=== PATIENT | male | born 1970 | race Caucasian/White ===

== ENCOUNTER 2016-11-17 02:13 | Emergency (ER) | payer SELFPAY ==
[~2016-11-17] VITALS: Ht 172.7 cm; Wt 82.0 kg
[2016-11-17 02:16] VITALS: Ht 172.7 cm; Wt 82.0 kg
[2016-11-17] MEDS ORDERED: KETOROLAC 30 MG INJ IV STA (02:37)
[2016-11-17] MEDS ORDERED: ONDANSETRON 4 MG INJ IV STA (02:37)
[2016-11-17 02:57] LABS: BASOPHILS % 0.2 % (0.0-2.0); EOSINOPHILS % 0.3 % (0.0-7.0); HEMATOCRIT 44.2 % (42.0-52.0); HEMOGLOBIN 14.2 g/dl (14.0-18.0); LYMPHOCYTES # 2.6 10^3/ul (0.8-2.9); LYMPHOCYTES % 19.2 % (15.0-51.0); MEAN CORPUSCULAR HEMOGLOBIN 26.6 pg (29.0-33.0); MEAN CORPUSCULAR HGB CONC 32.1 g/dl (32.0-37.0); MEAN CORPUSCULAR VOLUME 82.8 fl (82.0-101.0); MEAN PLATELET VOLUME 10.5 fl (7.4-10.4); MONOCYTE # 0.5 10^3/ul (0.3-0.9); MONOCYTES % 3.3 % (0.0-11.0); NEUTROPHIL # 10.4 10^3/ul (1.6-7.5); NEUTROPHILS % 76.6 % (39.0-77.0); PLATELET COUNT 381 10^3/UL (140-415); RED BLOOD COUNT 5.34 10^6/ul (4.70-6.10); RED CELL DISTRIBUTION WIDTH 12.2 % (11.5-14.5); WHITE BLOOD COUNT 13.6 10^3/ul (4.8-10.8)
[2016-11-17 03:07] LABS: ADD UMIC NO; UR ASCORBIC ACID NEGATIVE (NEGATIVE); UR BILIRUBIN (Dip) NEGATIVE (NEGATIVE); UR BLOOD (Dip) NEGATIVE (NEGATIVE); UR CLARITY CLEAR (CLEAR); UR COLOR YELLOW (YELLOW); UR GLUCOSE (Dip) 1+ mg/dL (NEGATIVE); UR KETONES (Dip) 1+ mg/dL (NEGATIVE); UR LEUKOCYTE ESTERASE (Dip) NEGATIVE Leu/ul (NEGATIVE); UR NITRITE (Dip) NEGATIVE (NEGATIVE); UR TOTAL PROTEIN (Dip) NEGATIVE (NEGATIVE); UR UROBILINOGEN (Dip) NEGATIVE (NEGATIVE)
[2016-11-17 03:13] LABS: ALBUMIN 4.9 g/dl (3.3-4.9); ALBUMIN/GLOBULIN RATIO 1.32; BILIRUBIN,INDIRECT 0.3 mg/dl (0-1.1); BILIRUBIN,TOTAL 0.3 mg/dl (0.2-1.3); CALCIUM 9.5 mg/dl (8.4-10.2); CREATININE 0.89 mg/dl (0.61-1.24); TOTAL PROTEIN 8.6 g/dl (6.1-8.1)
[2016-11-17] MEDS ORDERED: IBUP800T25 PO (03:21)
--- NOTE | 2016-11-17 03:36 | RADRPT ---
PROCEDURE: ULTRASOUND LIMITED ABDOMEN CLINICAL INDICATION: 46-year-old male with abdominal pain. TECHNIQUE: Multiple sonographic of the right upper quadrant of the abdomen were obtained. The imag es were reviewed on a PACS workstation. COMPARISON: None. FINDINGS: The pancreas is not well visualized secondary to overlying bowel gas. The liver displays normal echogenicity. The liver measures 16.3 cm in length. No evidence of intrah epatic biliary ductal dilatation is seen. The portal and hepatic veins are unremarkable. The gallbladder contains multiple shadowing stones. The gallbladder wall is mildly prominent measur ing 3.9 mm. No pericholecystic fluid is seen. The common bile duct measures 3.5 mm and is not dilate d. The right kidney displays normal echogenicity. The right kidney measures 12.4 cm in maximal length. No caliectasis or hydronephrosis is seen. No free fluid is seen. IMPRESSION: Cholelithiasis with mildly prominent gallbladder wall. .Caleb Whittaker MD, MD Date Time Electronically viewed and signed by .Caleb Whittaker MD, on 11/17/2016 03:36 .M/
--- NOTE | 2016-11-17 03:36 | ERD ---
ER Documentation Chief Complaint Date/Time DATE: 11/17/16 TIME: 03:23 Chief Complaint upper abd pain x 2 days HPI 46-year-old male complaining of abdominal pain 2 days. Patient stated that his abdominal pain first occurred 2 days ago after eating [place] food. He had vomited once in the time. The pain resolved, and return again today. He ate cheese and chicken for dinner tonight, an hour later the abdominal pain returned. Patient described pain as intense but dull, constant. Patient reports history of acid reflux, but no heartburn. Denies fever or chills. He currently has nausea, but no vomiting. Denies diarrhea or constipation. ROS All systems reviewed and are negative except as per history of present illness. Medications Home Meds Active Scripts Ondansetron (Ondansetron Odt) 4 Mg Tab.rapdis, 4 MG PO Q6H Y for NAUSEA AND/OR VOMITING, #10 TAB Prov:EWA NEVAREZ. FISH ICER 11/17/16 Tramadol HCl (Tramadol HCl) 50 Mg Tablet, 50 MG PO Q4 Y for PAIN, #20 TAB Prov:EWA NEVAREZ. FISH ICER 11/17/16 Discontinued Scripts Ibuprofen* (Motrin*) 800 Mg Tab, 800 MG PO Q6H Y for PAIN AND OR ELEVATED TEMP, #30 TAB Prov:EWA NEVAREZ. FISH ICER 11/17/16 Allergies Allergies: Coded Allergies: No Known Allergy (Unverified , 11/17/16) PMhx/Soc Medical and Surgical Hx: pt denies Medical Hx, pt denies Surgical Hx Hx Alcohol Use: No Hx Substance Use: No Hx Tobacco Use: No Smoking Status: Never smoker Physical Exam Vitals Vital Signs Date Time Temp Pulse Resp B/P Pulse Ox O2 Delivery O2 Flow Rate FiO2 11/17/16 02:16 98.3 73 20 176/90 99 Physical Exam General: Well-developed, well-nourished, conscious and coherent, in no distress Skin: Warm and dry without rash, good texture and turgor Head: Normocephalic without evidence of trauma Eyes: Sclera and conjunctivae normal; pupils equal, round, and reactive to light; extraocular movements are intact Chest: Normal AP diameter. Good expansion without retractions. Nontender. Lungs are clear to auscultate bilaterally with good tidal volume Heart: Regular rate and rhythm. No murmur, rub, or gallops heard Abdomen: Soft, right upper quadrant tenderness without masses, guarding, or rebound. Bowel sounds are active. No hepatosplenomegaly Extremities: Full range of motion. Good strength bilaterally. No clubbing, cyanosis, or edema. Peripheral pulses are intact. Sensation intact Neuro: Alert and oriented 4, GCS 15. Cranial nerves grossly intact. Motor and sensory exams nonfocal. Moves all extremities. Speech clear. Gait normal Result Diagram: 11/17/16 02511/17/16 025 Results 24 hrs Laboratory Tests Test 11/17/16 02:45 11/17/16 02:50 Urine Color YELLOW Urine Clarity CLEAR Urine pH 6.0 Urine Specific Card[place] 1.020 Urine Ketones 1+mg/dL Urine Nitrite NEGATIVEmg/dL Urine Bilirubin NEGATIVEmg/dL Urine Urobilinogen NEGATIVEmg/dL Urine Leukocyte Esterase NEGATIVELeu/ul Urine Hemoglobin NEGATIVEmg/dL Urine Glucose 1+mg/dL Urine Total Protein NEGATIVEmg/dl White Blood Count 13.610^3/ul Red Blood Count 5.3410^6/ul Hemoglobin 14.2g/dl Hematocrit 44.2% Mean Corpuscular Volume 82.8fl Mean Corpuscular Hemoglobin 26.6pg Mean Corpuscular Hemoglobin Concent 32.1g/dl Red Cell Distribution Width 12.2% Platelet Count 02099^3/UL Mean Platelet Volume 10.5fl Neutrophils % 76.6% Lymphocytes % 19.2% Monocytes % 3.3% Eosinophils % 0.3% Basophils % 0.2% Nucleated Red Blood Cells % 0.0/100WBC Neutrophils # 10.410^3/ul Lymphocytes # 2.610^3/ul Monocytes # 0.510^3/ul Eosinophils # 0.010^3/ul Basophils # 0.010^3/ul Nucleated Red Blood Cells # 0.010^3/ul Sodium Level 148mmol/L Potassium Level 4.0mmol/L Chloride Level 102mmol/L Carbon Dioxide Level 27mmol/L Anion Gap 23 Blood Urea Nitrogen 22mg/dl Creatinine 0.89mg/dl Glucose Level 162mg/dl Calcium Level 9.5mg/dl Total Bilirubin 0.3mg/dl Direct Bilirubin 0.00mg/dl Indirect Bilirubin 0.3mg/dl Aspartate Amino Transf (AST/SGOT) 25IU/L Alanine Aminotransferase (ALT/SGPT) 40IU/L Alkaline Phosphatase 97IU/L Total Protein 8.6g/dl Albumin 4.9g/dl Globulin 3.70g/dl Albumin/Globulin Ratio 1.32 Lipase 46U/L Current Medications Medications (Trade) Dose Ordered Sig/Karen Route PRN Reason Start Time Stop Time Status Last Admin Dose Admin Ketorolac Tromethamine (Toradol) 30 mg ONCE STAT IV 11/17/16 02:37 11/17/16 02:38 DC 11/17/16 02:57 Ondansetron HCl (Zofran Inj) 4 mg ONCE STAT IV 11/17/16 02:37 11/17/16 02:38 DC 11/17/16 02:56 PROCEDURE: ULTRASOUND LIMITED ABDOMEN CLINICAL INDICATION: 46-year-old male with abdominal pain. TECHNIQUE: Multiple sonographic of the right upper quadrant of the abdomen were obtained. The images were reviewed on a PACS workstation. COMPARISON: None. FINDINGS: The pancreas is not well visualized secondary to overlying bowel gas. The liver displays normal echogenicity. The liver measures 16.3 cm in length. No evidence of intrahepatic biliary ductal dilatation is seen. The portal and hepatic veins are unremarkable. The gallbladder contains multiple shadowing stones. The gallbladder wall is mildly prominent measuring 3.9 mm. No pericholecystic fluid is seen. The common bile duct measures 3.5 mm and is not dilated. The right kidney displays normal echogenicity. The right kidney measures 12.4 cm in maximal length. No caliectasis or hydronephrosis is seen. No free fluid is seen. IMPRESSION: Cholelithiasis with mildly prominent gallbladder wall. .Caleb Whittaker MD, MD Date Time Electronically viewed and signed by .Caleb Whittaker MD, MD on 11/17/2016 03:36 .M/ CC: EWA NEVAREZ FISH ICER Procedures/MDM Well-appearing 46-year-old male without any prior medical history presents the ED with right upper quadrant abdominal pain 2 days. Ultrasound showed cholelithiasis with mildly prominent gallbladder wall, without common bile duct dilation. Mild leukocytosis of 13.6 is seen on CBC. CMP is generally unremarkable, glucose 162, sodium 148. Lipase negative. 1+ ketones and 1+ glucose is noted UA, UA are otherwise unremarkable. Toradol 30 mg IV and Zofran 4 mg IV given to the patient in the ED. Patient reports improvement in symptoms after the medications. Patient appears well, stable for discharge and outpatient management. Medical decision making shared with patient and family. Education provided to patient and family. Patient and family expressed understanding of the plan. Medications on discharge: Tramadol, Zofran. Follow-up: Primary care provider in 2-3 days or return to ED if worse. The case was reviewed and discussed with Dr. Vences, who agrees with the plan of care including labs, treatment, and advanced imaging as appropriate. Disclaimer: Inadvertent spelling and grammatical errors are likely due to EHR/ dictation software use and do not reflect on the overall quality of patient care. Also, please note that the electronic time recorded on this note does not necessarily reflect the actual time of the patient encounter. Departure Diagnosis: Primary Impression: Gallstone Cholecystitis presence: without cholecystitis Biliary obstruction: without biliary obstruction Qualified Code: K80.20 - Calculus of gallbladder without cholecystitis without obstruction Condition: Stable Patient Instructions: Gallstones Referrals: [facility] YOU HAVE RECEIVED A MEDICAL SCREENING EXAM AND THE RESULTS INDICATE THAT YOU DO NOT HAVE A CONDITION THAT REQUIRES URGENT TREATMENT IN THE EMERGENCY DEPARTMENT. FURTHER EVALUATION AND TREATMENT OF YOUR CONDITION CAN WAIT UNTIL YOU ARE SEEN IN YOUR DOCTORS OFFICE WITHIN THE NEXT 1-2 DAYS. IT IS YOUR RESPONSIBILITY TO MAKE AN APPOINTMENT FOR FOLOW-UP CARE. IF YOU HAVE A PRIMARY DOCTOR --you should call your primary doctor and schedule an appointment IF YOU DO NOT HAVE A PRIMARY DOCTOR YOU CAN CALL OUR PHYSICIAN REFERRAL HOTLINE AT IF YOU CAN NOT AFFORD TO SEE A PHYSICIAN YOU CAN CHOSE FROM THE FOLLOWING [facility] [address] [facility] [address] [facility] [address] [facility] [address] [facility]. [facility] [address] [facility]. [facility] [address] Additional Instructions: Call your primary care doctor TOMORROW for an appointment during the next 2-3 days.See the doctor sooner or return here if your condition worsens before your appointment time. EWA NEVAREZ. KAJAL Nov 17, 2016 03:36
[2016-11-17] MEDS ORDERED: ONDA4TAB14 PO (03:37)
[2016-11-17] MEDS ORDERED: TRAM50TA2 PO (03:37)
== END 2016-11-17 04:01 | disposition home or self-care (01) ==
LOC: FTE 02:13
DX: K80.20 Calculus of gallbladder without cholecystitis without obstruction (principal); R11.10 Vomiting, unspecified
CPT/HCPCS: 36415; 76705; 80053; 81003; 83690; 85025; 96374; 96375; 99285; J1885; J2405

== ENCOUNTER 2016-11-18 07:09 | Inpatient (IN) | payer OTHER ==
[2016-11-18] VITALS (12 sets, daily range): BP systolic 118–156; BP diastolic 71–97; PULSE 84–98; RESP 16–20; TEMP 98.9; Ht 327.7 cm; Wt 81.5 kg
[~2016-11-18] VITALS: Ht 327.7 cm; Wt 81.5 kg
[~2016-11-18 07:09] MED LIST: ONDA4TAB14 PO; ROCURONIUM 50 MG INJ ONE; SUCCINYLCHOLINE CHLORIDE 100 MG/5 ML SYG IV ONE; TRAM50TA2 PO
[2016-11-18] MEDS ORDERED: morphine 4 MG/ML VIAL IV STA (08:02)
[2016-11-18] MEDS ORDERED: ONDANSETRON 4 MG INJ IV STA (08:02)
[2016-11-18 08:40] LABS: BASOPHILS % 0.2 % (0.0-2.0); EOSINOPHILS % 0.2 % (0.0-7.0); HEMATOCRIT 45.1 % (42.0-52.0); HEMOGLOBIN 14.8 g/dl (14.0-18.0); LYMPHOCYTES # 2.1 10^3/ul (0.8-2.9); LYMPHOCYTES % 13.9 % (15.0-51.0); MEAN CORPUSCULAR HEMOGLOBIN 27.6 pg (29.0-33.0); MEAN CORPUSCULAR HGB CONC 32.8 g/dl (32.0-37.0); MEAN PLATELET VOLUME 10.5 fl (7.4-10.4); MONOCYTE # 1.1 10^3/ul (0.3-0.9); MONOCYTES % 6.9 % (0.0-11.0); NEUTROPHIL # 12.1 10^3/ul (1.6-7.5); NEUTROPHILS % 78.4 % (39.0-77.0); PLATELET COUNT 378 10^3/UL (140-415); RED BLOOD COUNT 5.37 10^6/ul (4.70-6.10); RED CELL DISTRIBUTION WIDTH 12.1 % (11.5-14.5); WHITE BLOOD COUNT 15.4 10^3/ul (4.8-10.8)
--- NOTE | 2016-11-18 08:50 | RADRPT ---
PROCEDURE: US Abdomen. CLINICAL INDICATION: abdominal pain TECHNIQUE: Multiple real-time images were acquired of the patient's right upper quadrant abdomen a nd retroperitoneum utilizing a high resolution transducer. COMPARISON: 11/17/2016 FINDINGS: The study is limited due to overlying bowel gas. The pancreas was not visualized. The liver demonstrates normal echogenicity. The liver is normal in size and no focal solid lesions are seen. The liver measures 16.1 cm in length. The portal vein is patent with normal direction of f low. No intrahepatic biliary dilatation is seen. Multiple gallstones are identified within the gallbladder. There is no pericholecystic fluid there is minimal gallbladder wall thickening. The gallbladder wall measures 3.7 mm. The common bile duct measures 5.6 mm in maximal dimension. No free fluid is identified. The right kidney is normal in size, and demonstrate normal echogenicity and cortical thickness. The right kidney measures 12.5 cm in long dimension. There is no evidence of hydronephrosis. There are no kidney stones. RPTAT: AA IMPRESSION: Cholelithiasis with minimal gallbladder wall thickening. No evidence of pericholecystic fluid. No significant interval change. .Deric Leon MD, MD Date Time Electronically viewed and signed by .Deric Leon MD, on 11/18/2016 08:50 .S/
[2016-11-18 08:59] LABS: ALBUMIN 4.8 g/dl (3.3-4.9); ALBUMIN/GLOBULIN RATIO 1.33; BILIRUBIN,INDIRECT 0.8 mg/dl (0-1.1); BILIRUBIN,TOTAL 0.8 mg/dl (0.2-1.3); CALCIUM 9.2 mg/dl (8.4-10.2); CREATININE 0.84 mg/dl (0.61-1.24); POTASSIUM 4.3 mmol/L (3.5-5.1); TOTAL PROTEIN 8.4 g/dl (6.1-8.1)
--- NOTE | 2016-11-18 09:03 | ERD ---
ER Documentation Chief Complaint Date/Time DATE: 11/18/16 TIME: 09:01 Chief Complaint abd pain x 2 days , was seen here yesterday for same HPI This 46-year-old male who presents the emergency department today for intermittent abdominal pain for the past 3 weeks and worse over the past couple of days. Patient was seen here yesterday but he has pain has persisted despite taking pain medication. States he is also nauseated. Denies any fevers or chills. ROS All systems reviewed and are negative except as per history of present illness. 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/16 Tramadol HCl (Tramadol HCl) 50 Mg Tablet, 50 MG PO Q4 Y for PAIN, #20 TAB Prov:EWA NEVAREZ NP 11/17/16 Discontinued Scripts Ibuprofen* (Motrin*) 800 Mg Tab, 800 MG PO Q6H Y for PAIN AND OR ELEVATED TEMP, #30 TAB Prov:EWA NEVAREZ [employer] 11/17/16 Allergies Allergies: Coded Allergies: No Known Allergy (Unverified , 11/18/16) PMhx/Soc Medical and Surgical Hx: pt denies Medical Hx, pt denies Surgical Hx Hx Alcohol Use: No Hx Substance Use: No Hx Tobacco Use: No Smoking Status: Former smoker Physical Exam Vitals Vital Signs Date Time Temp Pulse Resp B/P Pulse Ox O2 Delivery O2 Flow Rate FiO2 11/18/16 07:12 98.2 71 18 172/98 97 Physical Exam Const: No acute distress Head: Atraumatic Eyes: Normal Conjunctiva ENT: Normal External Ears, Nose and Mouth. Neck: Full range of motion..~ No meningismus. Resp: Clear to auscultation bilaterally Cardio: Regular rate and rhythm, no murmurs Abd: Soft, right upper quadrant tenderness non distended. Normal bowel sounds. No right lower quadrant pain. No tenderness McBurney's Skin: No petechiae or rashes Back: No midline or flank tenderness Ext: No cyanosis, or edema Neur: Awake and alert Psych: Normal Mood and Affect Result Diagram: 11/18/16 0820 11/18/16 0820 Results 24 hrs Laboratory Tests Test 11/18/16 08:20 11/18/16 09:00 White Blood Count 15.410^3/ul Red Blood Count 5.3710^6/ul Hemoglobin 14.8g/dl Hematocrit 45.1% Mean Corpuscular Volume 84.0fl Mean Corpuscular Hemoglobin 27.6pg Mean Corpuscular Hemoglobin Concent 32.8g/dl Red Cell Distribution Width 12.1% Platelet Count 35063^3/UL Mean Platelet Volume 10.5fl Neutrophils % 78.4% Lymphocytes % 13.9% Monocytes % 6.9% Eosinophils % 0.2% Basophils % 0.2% Nucleated Red Blood Cells % 0.0/100WBC Neutrophils # 12.110^3/ul Lymphocytes # 2.110^3/ul Monocytes # 1.110^3/ul Eosinophils # 0.010^3/ul Basophils # 0.010^3/ul Nucleated Red Blood Cells # 0.010^3/ul Sodium Level 144mmol/L Potassium Level 4.3mmol/L Chloride Level 98mmol/L Carbon Dioxide Level 28mmol/L Anion Gap 22 Blood Urea Nitrogen 16mg/dl Creatinine 0.84mg/dl Glucose Level 132mg/dl Calcium Level 9.2mg/dl Total Bilirubin 0.8mg/dl Direct Bilirubin 0.00mg/dl Indirect Bilirubin 0.8mg/dl Aspartate Amino Transf (AST/SGOT) 25IU/L Alanine Aminotransferase (ALT/SGPT) 29IU/L Alkaline Phosphatase 100IU/L Total Protein 8.4g/dl Albumin 4.8g/dl Globulin 3.60g/dl Albumin/Globulin Ratio 1.33 Lipase 33U/L Urine Color YELLOW Urine Clarity CLEAR Urine pH 5.0 Urine Specific Wallace 1.023 Urine Ketones 1+mg/dL Urine Nitrite NEGATIVEmg/dL Urine Bilirubin NEGATIVEmg/dL Urine Urobilinogen NEGATIVEmg/dL Urine Leukocyte Esterase NEGATIVELeu/ul Urine Microscopic RBC 3/HPF Urine Microscopic WBC 2/HPF Urine Mucus MODERATE/HPF Urine Hemoglobin 1+mg/dL Urine Glucose NEGATIVEmg/dL Urine Total Protein NEGATIVEmg/dl Current Medications Medications (Trade) Dose Ordered Sig/Karen Route PRN Reason Start Time Stop Time Status Last Admin Dose Admin Morphine Sulfate (morphine) 4 mg ONCE STAT IV 11/18/16 08:02 11/18/16 08:04 DC 11/18/16 08:14 Ondansetron HCl 4 mg 4 mg ONCE STAT IV 11/18/16 08:02 11/18/16 08:04 DC 11/18/16 08:14 Ampicillin Sodium/ Sulbactam Sodium (Unasyn 3gm/NS (Pmx)) 100 ml @ 100 mls/hr ONCE ONCE IVPB 11/18/16 11:30 11/18/16 12:29 Ondansetron HCl (Zofran Inj) 4 mg BRIDGE ORDER PRN IV NAUSEA AND/OR VOMITING 11/18/16 11:30 11/19/16 11:29 Acetaminophen (Tylenol Tab) 650 mg ER BRIDGE PRN PO MILD PAIN/FEVER 11/18/16 11:30 11/19/16 11:29 DIAGNOSTIC IMAGING REPORT Patient: MARIEL FIERRO : 1970 Age: 46 Sex: M MR #: [id number] DOS: 11/18/16 0802 Ordering MD: PRINCE PHAM PA-C Location: [facility] Room/Bed: PROCEDURE: US Abdomen. CLINICAL INDICATION: abdominal pain TECHNIQUE: Multiple real-time images were acquired of the patient's right upper quadrant abdomen and retroperitoneum utilizing a high resolution transducer. COMPARISON: 11/17/2016 FINDINGS: The study is limited due to overlying bowel gas. The pancreas was not visualized. The liver demonstrates normal echogenicity. The liver is normal in size and no focal solid lesions are seen. The liver measures 16.1 cm in length. The portal vein is patent with normal direction of flow. No intrahepatic biliary dilatation is seen. Multiple gallstones are identified within the gallbladder. There is no pericholecystic fluid there is minimal gallbladder wall thickening. The gallbladder wall measures 3.7 mm. The common bile duct measures 5.6 mm in maximal dimension. No free fluid is identified. The right kidney is normal in size, and demonstrate normal echogenicity and cortical thickness. The right kidney measures 12.5 cm in long dimension. There is no evidence of hydronephrosis. There are no kidney stones. RPTAT: AA IMPRESSION: Cholelithiasis with minimal gallbladder wall thickening. No evidence of pericholecystic fluid. No significant interval change. .Deric Leon MD, MD Date Time Electronically viewed and signed by .Deric Leon MD, MD on 11/18/2016 08: 50 .S/ CC: PRINCE PHAM PA-C Procedures/MDM This 46-year-old male who presents the emergency department today complaining of intermittent abdominal pain for the past 3 weeks worse over the past day. Patient was seen here in the emergency department and was found to have gallstones with mild gallbladder wall thickening. He was discharged home with pain medication. Given that patient presents again for same pain I did discuss the patient with Dr. Darling and he is recommended a repeat workup Laboratory workup shows an elevated white blood cell count of 15.4 which is trending upward slightly from his visit yesterday. He is not anemic. Platelets are within normal limits. Electrolytes are within normal limits. Glucose within normal limits. Liver enzymes are within normal limits. Lipase is within normal limits. UA is negative for infection. Ultrasound shows cholelithiasis with minimal gallbladder wall thickening. There is no evidence of pericholecystic fluid. There is no significant interval change. Common bile duct measures 5.6 mm in maximal dimension which is mildly enlarged from his visit yesterday. Patient was given morphine and Zofran here in the emergency department and pain was well controlled. Discussed the results again with Dr. Darling and he saw and evaluated the patient and he has agreed to admit the patient after speaking to the general surgeon specifications checker for acute cholecystitis.. Any further orders placed will be placed by Dr. Darling or the admitting physician. Departure Diagnosis: Primary Impression: Acute cholecystitis Condition: Fair PRINCE PHAM PA-C Nov 18, 2016 09:03
[2016-11-18 09:25] LABS: ADD UMIC YES; UR ASCORBIC ACID NEGATIVE (NEGATIVE); UR BILIRUBIN (Dip) NEGATIVE (NEGATIVE); UR BLOOD (Dip) 1+ mg/dL (NEGATIVE); UR CLARITY CLEAR (CLEAR); UR COLOR YELLOW (YELLOW); UR GLUCOSE (Dip) NEGATIVE (NEGATIVE); UR KETONES (Dip) 1+ mg/dL (NEGATIVE); UR LEUKOCYTE ESTERASE (Dip) NEGATIVE Leu/ul (NEGATIVE); UR MUCUS MODERATE /HPF (NONE SEEN); UR NITRITE (Dip) NEGATIVE (NEGATIVE); UR RBC 3 /HPF (0-5); UR SPECIFIC GRAVITY (Dip) 1.023 (1.003-1.030); UR TOTAL PROTEIN (Dip) NEGATIVE (NEGATIVE); UR UROBILINOGEN (Dip) NEGATIVE (NEGATIVE)
[2016-11-18] MEDS ORDERED: ACETAMINOPHEN 325 MG TAB PO PRN ×2 (11:30→12:00)
[2016-11-18] MEDS ORDERED: ONDANSETRON 4 MG INJ IV PRN ×3 (11:30→21:00)
[2016-11-18] MEDS ORDERED: AMPICILLIN/SULB 3 GM/NS (PMX) 100 ML IVPB ONE (11:30)
--- NOTE | 2016-11-18 11:30 | QN ---
Documentation Comment I have seen and evaluated the patient along with the PA and/or C[employer]OTECTION OFFICER provider. I agree with the evaluation and plan of care. Please see their documentation for full ER course and evaluation. In short: This is a patient presents with persistent right upper quadrant abdominal pain was seen here yesterday with borderline gallbladder wall thickening On exam: General: Well developed, well nourished, no acute distress Head: Normocephalic, atraumatic Eyes: Pupils equally reactive, EOM intact ENT: Moist mucous membranes Neck: Supple, no lymphadenopathy Respiratory: Lungs clear bilaterally, no distress Cardiovascular: RRR, no murmurs, rubs, or gallops Abdominal: Focal tenderness the right upper quadrant, mild guarding, negative Laureano sign : Deferred MSK: No edema, no unilateral swelling, 5/5 strength Neurologic: Alert and oriented, moving all extremities, normal speech, no focal weakness, no cerebellar signs Skin: No rash Psych: Normal mood Assessment and plan: The patient has early signs of acute cholecystitis and may benefit from hospitalization. I spoke to Dr. Wheeler who confirms. Unasyn provided. The patient is n.p.o. Pain is well controlled. Accepting care team and consultations: I discussed the current laboratory data, diagnostic imaging and emergency care provided. Admitting team: Dr. Bustillos Admitting team indication: Insurance directed Consulting services: Dr. Wheeler, general surgery MAYO GLYNN MD Nov 18, 2016 11:30
[2016-11-18] MEDS ORDERED: MAGNESIUM HYDROXIDE 30ML CUP PO PRN (12:00)
[2016-11-18] MEDS ORDERED: morphine 2 MG INJ IV PRN (12:00)
[2016-11-18] MEDS ORDERED: NACL 0.9% 3 ML SYG IV SCH (12:00)
[2016-11-18] MEDS ORDERED: BISACODYL (EC) 5 MG TAB PO PRN (12:00)
[2016-11-18] MEDS ORDERED: hydrALAzine 20 MG INJ IV PRN ×2 (12:00→21:00)
[2016-11-18] MEDS ORDERED: HYDROCODONE/APAP (5/325) TAB PO PRN ×3 (12:00→21:30)
[2016-11-18 12:37] LABS: CHOL/HDL RATIO 5.7 RATIO
[2016-11-18] MEDS: D5W-0.45 NACL + KCL 20 MEQ 1,000 ML IV SCH ×2 (12:58→22:23)
[2016-11-18] MEDS: AMPICILLIN/SULB 3 GM/NS (PMX) 100 ML IVPB SCH ×2 (13:00→18:00)
[2016-11-18 13:09] LABS: THYROID STIMULATING HORMONE 0.169 MIU/L (0.465-4.680)
--- NOTE | 2016-11-18 14:45 | HP ---
Date/Time of Note Date/Time of Note DATE: 11/18/16 TIME: 14:43 Assessment/Plan VTE Prophylaxis VTE Prophylaxis Intervention: SCD's Assessment/Plan Chief Complaint/Hosp Course 1. Symptomatic cholelithiasis. Possible underlying acute cholecystitis. The patient will be kept n.p.o. except for medications. The patient was started on empiric antibiotics. The patient will be provided with adequate pain control. The patient will be started on IV fluids. 2. Leukocytosis. Most probably secondary to #1. Continue antibiotics. Plan: The patient will be admitted to inpatient medical surgical floor floor. The patient will be kept n.p.o. except for medication. The patient will be started on DVT prophylaxis and gastrointestinal prophylaxis. The patient will remain a full code. Activities will be as tolerated. The rest of the patient's management will be based on the clinical course, inputs from consultants, and the results of diagnostic studies. Based on the patient's clinical presentation, he most probably requires at least 1 midnight's stay for further management and evaluation of his clinical presentation. The case and management of this patient was fully discussed with Dr. Cobb Problems: HPI/ROS Admit Date/Time Admit Date/Time Nov 18, 2016 at 11:24 Hx of Present Illness Reason for admission: Abdominal pain. Consultants 1. Audie Wheeler MD, General Surgery. This is a 46-year-old male patient who denies any significant past medical history who came to the emergency room with chief complaint of abdominal pain. The patient was seen in the emergency room for the same complaint on 11/17/2016 and was discharged home on tramadol and Zofran. The patient's abdominal pain was not getting better. Hence he came back to the emergency room. The patient denied any nausea or vomiting. Patient was complaining of poor appetite. Patient denied any diarrhea. The patient denied any fevers, chills, or any other complaints. In the emergency room, the patient was noticed a leukocytosis with WBC of 15.4. The patient's LFTs were within normal limits. The patient underwent a gallbladder ultrasound that showed cholelithiasis with minimal gallbladder wall thickening and no evidence of pericholecystic fluid. A general surgery consult was called by the ER physician. The patient was started on IV ampicillin with sulbactam. ROS Constitutional: no complaints Eyes: no complaints ENT: no complaints Respiratory: no complaints Cardiovascular: no complaints Gastrointestinal: pain Genitourinary: no complaints Musculoskeletal: no complaints Skin: no complaints Neurologic: no complaints Endocrine: no complaints Lymphatic: no complaints Psychological: no complaints Immunologic: no complaints PMH/Family/Social Past Medical History Medical History: no pertinent history Past Surgical History Past Surgical Hx: no surgical history Family History Significant Family History: no pertinent family hx Social History The patient works in [employer]. Alcohol Use: none Smoking Status: Never smoker Drug Use: none Exam/Review of Systems Vital Signs Vitals Vital Signs Date Time Temp Pulse Resp B/P Pulse Ox O2 Delivery O2 Flow Rate FiO2 11/18/16 14:36 99.1 70 18 156/97 94 11/18/16 12:00 Room Air Exam Exam General: Adequately build 46 year-old male lying in bed in no apparent distress. HEENT: Normocephalic, atraumatic. Eyes: Anicteric sclerae, conjunctivae clear. ENT: Nasal septum midline, oral mucosa moist. Neck supple, no JVD noticed. Respiratory: Bilaterally clear breath sounds. No use of accessory muscles of respiration. No adventitious breath sounds. Cardiovascular: S1, S2 heard. No murmurs or gallops. Abdomen: Soft and nondistended. Bowel sounds positive in all 4 quadrants. Right upper quadrant and epigastric tenderness. Genitourinary: Deferred. Extremities: No cyanosis, no clubbing, no edema. Peripheral pulses palpable. Neurologic: Cranial nerves II through XII grossly intact. The patient is awake, alert, and oriented. Skin: Normal skin turgor. No skin rashes. Labs Result Diagram: 11/18/1681911/18/16 08 Medications Medications Current Medications Potassium Chloride/Dextrose/ Sod Cl (D5-1/2ns + KCl 20 Meq) 1,000 ml @ 100 mls/ hr Q10H IV Last administered on 11/18/16t 12:58; Admin Dose 100 MLS/HR; Start 11/18/16 at 11:54 Ondansetron HCl (Zofran Inj) 4 mg Q6H PRN IV NAUSEA AND/OR VOMITING; Start at 12:00 Acetaminophen (Tylenol Tab) 650 mg Q6H PRN PO PAIN LEVEL 1-3 OR FEVER; Start at 12:00 Acetaminophen/ Hydrocodone Bitart (Braymer (5/325)) 1 tab Q6H PRN PO MODERATE PAIN LEVEL 4-6; Start 11/18/16 at 12:00 Morphine Sulfate (morphine) 2 mg Q4H PRN IV SEVERE PAIN LEVEL 7-10 Last administered on 11/18/16t 13:04; Admin Dose 2 MG; Start 11/18/16 at 12:00 Magnesium Hydroxide (Milk Of Mag) 30 ml DAILY PRN PO CONSTIPATION; Start at 12:00 Bisacodyl (Dulcolax) 5 mg DAILY PRN PO CONSTIPATION; Start 11/18/16 at 12:00 Famotidine 20 mg 20 mg Q12 IV ; Start 11/18/16 at 21:00 Ampicillin Sodium/ Sulbactam Sodium (Unasyn 3gm/NS (Pmx)) 100 ml @ 100 mls/hr Q6 IVPB ; Start 11/18/16 at 13:00 Hydralazine HCl (Apresoline) 10 mg Q6H PRN IV SBP>160; Start 11/18/16 at 12:00 Procedures Procedures Gallbladder Ultrasound IMPRESSION: Cholelithiasis with minimal gallbladder wall thickening. No evidence of pericholecystic fluid. ZENAIDA RIZVI NP Nov 18, 2016 14:45 ZENAIDA RIZVI NP Nov 18, 2016 14:45
--- NOTE | 2016-11-18 15:23 | CONS ---
Date/Time of Note Date/Time of Note DATE: 11/18/16 TIME: 15:23 Assessment/Plan Assessment/Plan Additional Assessment/Plan [facility] IN[facility]IENT CONSULTATION NOTE DATE OF SERVICE: 11/18/2016 PLACE OF SERVICE: [facility], floor ASSESSMENT AND PLAN: A very-pleasant and otherwise seemingly healthy 46-year- old gentleman with only known comorbidity of BMI 26.5, presenting with signs and symptoms consistent with possible early acute cholecystitis. I recommended laparoscopic, possible open cholecystectomy and described the operation in detail with the patient as well as the risks, benefits, and alternatives. After careful consideration on all of these options, the patient appeared to understand and agreed with the plans. Please note that there was no family present during any of my discussions with the patient. With above assessment, I've recommended the followin. Agree with admission 2. Treat symptoms 3. To the operating room with above Thank you very much for having me involved in the care of this very pleasant patient and wonderful family. If you have any questions, please feel free to contact me at [phone]. Nature of presenting problem: Moderate severity Please note that, given the limited number of diagnoses or management options, the limits amount and/or complexity of data needed to be reviewed, and moderate risk of complications and/or morbidity or mortality, this qualifies as low to moderate complexity type of decision-making. Disclaimer: Inadvertent spelling and grammatical errors are likely due to EHR/ dictation software use and do not reflect on the quality of delivered patient care. Also, please note that the electronic time recorded on this node does not necessarily reflect the actual time of the visit. Updated clinical summary: Patient is a very-pleasant and otherwise seemingly healthy 46-year-old gentleman with only known comorbidity of BMI 26.5, presenting with signs and symptoms consistent with possible early acute cholecystitis. Comorbidities: 1. BMI 26.5 CONSULTATION REQUESTED BY: Sonia Cobb MD HISTORY OF PRESENT ILLNESS: The patient is a very pleasant 46-year-old gentleman with three-week history of intermittent abdominal pain located in the right lower quadrant without significant radiation. Associated nausea but no significant vomiting. No fevers or chills. No alleviating factors or exacerbating factors. Patient was seen in our emergency department yesterday and was sent home but returned with more abdominal pain and elevation in his white blood cell count. No other major complaints during my visit. ALLERGIES: NO KNOWN DRUG ALLERGIES MEDICATIONS Documented in the electronic records and reviewed by me. Please see the electronic records for details, as well as details for inpatient medications which were also reviewed by me. Ondansetron, tramadol. SOCIAL HISTORY: The patient lives with family.-Tob;-ETOH;-IVDU FAMILY HISTORY: There are no significant medical, surgical or oncologic issues in the family as reported by the patient or reflected in the chart. REVIEW OF SYSTEMS: Other than mentioned above, there were no other pertinent positives or pertinent negatives in an otherwise complete 14 point review of systems. PHYSICAL EXAMINATION GENERAL: The patient appears to be a very pleasant gentleman of /[facility] hospital descent lying in bed, appearing stated age, and otherwise in no acute distress. BMI: 26.5 VITAL SIGNS: AVSS with the exception of hypertension (please also see auto important data if available as well as the electronic records) HEENT: Normocephalic and atraumatic. Extraocular muscles and hearing are grossly intact bilaterally and symmetrically. Sclerae are nonicteric. Oral cavity is clear; oral mucosa appear to be pink and moist. Dentition: fair. NECK: Supple. There is no lymphadenopathy or JVD. There is no submental, submandibular or supraclavicular lymphadenopathy. CHEST: Rises symmetrically with each breath; patient is breathing comfortably. There are no audible wheezes, rales or rhonchi on the gross exam. HEART: Pulse is regular and palpable on the right wrist. Capillary refill is normal. Carotid pulses are palpable bilaterally and symmetrically in the neck. EXTREMITIES: Lower extremities contain no pitting edema around the ankles bilaterally and symmetrically. ABDOMEN: Abdomen is soft, mild to moderately tender in the right upper quadrant and nondistended. No evidence of ascites, organomegaly, caput medusae , engorged subcutaneous veins, or other abnormalities. There are no peritoneal signs or guarding. SKIN: Appears to be pink and feels warm to touch. NEUROLOGIC: Awake, alert, and follows commands appropriately. LABORATORY DATA: See below IMAGING: See electronic chart. Please note that I've personally reviewed all pertinent available images and I agree in general with their overall reported findings. Right upper quadrant ultrasound [facility] 11/18/2016 IMPRESSION: Cholelithiasis with minimal gallbladder wall thickening. No evidence of pericholecystic fluid. No significant interval change. Consultation Date/Type/Reason Admit Date/Time Nov 18, 2016 at 11:24 Eyes: no complaints ENT: no complaints Respiratory: no complaints Cardiovascular: no complaints Gastrointestinal: pain Genitourinary: no complaints Musculoskeletal: no complaints Skin: no complaints Neurologic: no complaints Lymphatic: no complaints Psychological: no complaints Immunologic: no complaints Past Medical History Medical History: no pertinent history Past Surgical History Past Surgical Hx: no surgical history Social History Alcohol Use: none Smoking Status: Never smoker Drug Use: none Exam/Review of Systems Vital Signs Vitals Vital Signs Date Time Temp Pulse Resp B/P Pulse Ox O2 Delivery O2 Flow Rate FiO2 11/18/16 14:36 99.1 70 18 156/97 94 11/18/16 12:00 Room Air Results Result Diagram: 11/18/16 0820 11/18/16 0820 Results 24 hrs Laboratory Tests Test 11/18/16 08:20 11/18/16 09:00 White Blood Count 15.4 H Red Blood Count 5.37 Hemoglobin 14.8 Hematocrit 45.1 Mean Corpuscular Volume 84.0 Mean Corpuscular Hemoglobin 27.6 L Mean Corpuscular Hemoglobin Concent 32.8 Red Cell Distribution Width 12.1 Platelet Count 378 Mean Platelet Volume 10.5 H Neutrophils % 78.4 H Lymphocytes % 13.9 L Monocytes % 6.9 Eosinophils % 0.2 Basophils % 0.2 Nucleated Red Blood Cells % 0.0 Neutrophils # 12.1 H Lymphocytes # 2.1 Monocytes # 1.1 H Eosinophils # 0.0 Basophils # 0.0 Nucleated Red Blood Cells # 0.0 Sodium Level 144 Potassium Level 4.3 Chloride Level 98 Carbon Dioxide Level 28 Anion Gap 22 H Blood Urea Nitrogen 16 Creatinine 0.84 Glucose Level 132 Hemoglobin A1c 5.5 Calcium Level 9.2 Total Bilirubin 0.8 Direct Bilirubin 0.00 Indirect Bilirubin 0.8 Aspartate Amino Transf (AST/SGOT) 25 Alanine Aminotransferase (ALT/SGPT) 29 Alkaline Phosphatase 100 Total Protein 8.4 H Albumin 4.8 Globulin 3.60 H Albumin/Globulin Ratio 1.33 Triglycerides Level 80 Cholesterol Level 223 H LDL Cholesterol, Calculated 168 HDL Cholesterol 39 Cholesterol/HDL Ratio 5.7 Lipase 33 Thyroid Stimulating Hormone (TSH) 0.169 L Free Thyroxine 1.52 Urine Color YELLOW Urine Clarity CLEAR Urine pH 5.0 Urine Specific [place] 1.023 Urine Ketones 1+ H Urine Nitrite NEGATIVE Urine Bilirubin NEGATIVE Urine Urobilinogen NEGATIVE Urine Leukocyte Esterase NEGATIVE Urine Microscopic RBC 3 Urine Microscopic WBC 2 Urine Mucus MODERATE Urine Hemoglobin 1+ H Urine Glucose NEGATIVE Urine Total Protein NEGATIVE Medications Medications Current Medications Potassium Chloride/Dextrose/ Sod Cl (D5-1/2ns + KCl 20 Meq) 1,000 ml @ 100 mls/ hr Q10H IV Last administered on 11/18/16 12:58; Admin Dose 100 MLS/HR; Start 11/18/16 at 11:54 Ondansetron HCl (Zofran Inj) 4 mg Q6H PRN IV NAUSEA AND/OR VOMITING; Start at 12:00 Acetaminophen (Tylenol Tab) 650 mg Q6H PRN PO PAIN LEVEL 1-3 OR FEVER; Start at 12:00 Acetaminophen/ Hydrocodone Bitart (Adel (5/325)) 1 tab Q6H PRN PO MODERATE PAIN LEVEL 4-6; Start 11/18/16 at 12:00 Morphine Sulfate (morphine) 2 mg Q4H PRN IV SEVERE PAIN LEVEL 7-10 Last administered on 11/18/16 13:04; Admin Dose 2 MG; Start 11/18/16 at 12:00 Magnesium Hydroxide (Milk Of Mag) 30 ml DAILY PRN PO CONSTIPATION; Start at 12:00 Bisacodyl (Dulcolax) 5 mg DAILY PRN PO CONSTIPATION; Start 11/18/16 at 12:00 Famotidine 20 mg 20 mg Q12 IV ; Start 11/18/16 at 21:00 Ampicillin Sodium/ Sulbactam Sodium (Unasyn 3gm/NS (Pmx)) 100 ml @ 100 mls/hr Q6 IVPB ; Start 11/18/16 at 13:00 Hydralazine HCl (Apresoline) 10 mg Q6H PRN IV SBP>160; Start 11/18/16 at 12:00 IRAM LAIRD M.D. Nov 18, 2016 15:23
[2016-11-18] MEDS ORDERED: BUPIVACAINE 0.25%/EPI (SDV) 30 ML INJ ONE (18:05)
[2016-11-18] MEDS ORDERED: LIDOCAINE 2% (SDV) 5 ML INJ ONE (19:18)
[2016-11-18] MEDS ORDERED: ETOMIDATE 20 MG INJ ONE (19:18)
[2016-11-18] MEDS ORDERED: MIDAZOLAM 1 MG/ML 2 ML INJ ONE (19:18)
[2016-11-18] MEDS ORDERED: PHENYLephrine (100 MCG/ML) 5ML SYG ONE ×3 (19:42→21:07)
[2016-11-18] MEDS ORDERED: METOCLOPRAMIDE 10 MG INJ ONE (19:47)
[2016-11-18] MEDS ORDERED: DEXAMETHASONE 4 MG/ML 1 ML INJ ONE (19:47)
[2016-11-18] MEDS ORDERED: FAMOTIDINE 20 MG INJ ONE (19:47)
[2016-11-18] MEDS ORDERED: ONDANSETRON 4 MG INJ ONE (19:47)
[2016-11-18] MEDS ORDERED: LABETALOL HCL 20MG INJ ONE (20:18)
[2016-11-18] MEDS ORDERED: ROPIVACAINE 0.2% 20 ML VIAL ONE ×2 (20:26→20:27)
[2016-11-18] MEDS ORDERED: NEOSTIGMINE 3 MG/3 ML SYRINGE ONE (20:52)
[2016-11-18] MEDS ORDERED: GLYCOPYRROLATE 0.4 MG INJ ONE (20:52)
[2016-11-18] MEDS ORDERED: KETOROLAC 30 MG INJ ONE (20:54)
[2016-11-18] MEDS ORDERED: MEPERIDINE 25 MG INJ IV PRN (21:00)
[2016-11-18] MEDS ORDERED: PROCHLORPERAZINE 10 MG INJ IV PRN (21:00)
[2016-11-18] MEDS ORDERED: DIPHENHYDRAMINE 50 MG INJ IV PRN (21:00)
[2016-11-18] MEDS ORDERED: HYDROmorphONE (0.2 MG/ML) 10ML SYG IV PRN ×2 (21:00)
--- NOTE | 2016-11-18 21:28 | OPR ---
Date/Time of Note Date/Time of Note DATE: 11/18/16 TIME: 21:27 Operative Report Operative\Procedure Findings [facility]IENT [facility] PLACE OF SERVICE: [facility] DATE OF SURGERY: 11/18/2016 PREOPERATIVE DIAGNOSIS: 1. Acute cholecystitis 2. BMI 26.5 POSTOPERATIVE DIAGNOSIS: 1. Acute cholecystitis with perforation and gangrene 2. BMI 26.5 OPERATION: 1. Laparoscopic cholecystectomy SURGEON: Iram Laird M.D. SALES PROMOTION MANAGER: None ANESTHESIA: General endotracheal tube anesthesia ANESTHESIOLOGIST: Mikie Watts M.D. BRIEF SUMMARY: An otherwise uncomplicated but challenging laparoscopic cholecystectomy was performed with findings of acute cholecystitis with gangrene and localized perforation. Updated clinical summary: Patient is a very-pleasant and otherwise seemingly healthy 46-year-old gentleman with only known comorbidity of BMI 26.5, presenting with signs and symptoms consistent with possible early acute cholecystitis. Comorbidities: 1. BMI 26.5 BRIEF HISTORY: The patient is a very pleasant 46-year-old gentleman with only known comorbidity of BMI 26.5, presenting with signs and symptoms consistent with possible early acute cholecystitis. I recommended laparoscopic, possible open cholecystectomy and described the operation in detail with the patient as well as the risks, benefits, and alternatives. After careful consideration on all of these options, the patient appeared to understand and agreed with the plans. Please note that there was no family present during any of my discussions with the patient. For a detailed report of my consultation with patient, please refer to my separate consultation note. STATEMENT OF THE INFORMED CONSENT: The patient appeared to understand the risks of the operation to include, but not be limited to risk of postoperative pain and scar tissue, possible infection or bleeding requiring other interventions such as opening the wound, placement of drainage catheters, or other operative interventions; possible injury to surrounding to structures including bowel, bladder, bile duct, or blood vessels, or solid organs such as liver, kidney, or pancreas requiring other interventions or procedures; possible leakage of bile from surgical clip sites, suture lines, or worse, from common bile duct injury, causing significant increase in morbidity and mortality and requiring multiple interventions including but not limited to, placement of drainage catheters, imaging studies, as well as operative interventions; possible other source of sepsis such as urinary tract infections or pneumonias, or other sources of potentially life threatening problems such as deep venous thrombus formation causing pulmonary embolism, myocardial arrhythmias and infarctions, and even . After careful consideration of all their options, the patient and family appeared to understand and wished to proceed with surgery. DESCRIPTION OF PROCEDURE: After obtaining informed consent, the patient was brought into the operating room and was placed in a normal supine position, where successful general endotracheal tube anesthesia was performed. The patient 's abdominal skin was prepped and draped, from the nipple line down to the level of the groins, in the usual sterile fashion. Intravenous access was already in place, and appropriately chosen and dosed prophylactic intravenous antimicrobials were administered. We then called a surgical time-out where patient's identification, date of , nature of the operation, allergies, presence of intravenous antimicrobials, presence of needed equipment, and any other concerns were reviewed and agreed upon by all members of the operating room team. We then started the operation by placing a 5-mm skin incision in the right- upper quadrant, subcostal midclavicular line, and introduced a 5-mm [employer] trocar into the peritoneal space, visualizing all the layers of the abdominal wall as we entered. Note that there was no indication of any injury to underlying structures once we entered the peritoneum. We insufflated the abdominal cavity to a maximum pressure of 15 mmHg, again, confirmed lack of any injury to underlying structures prior to visualizing the rest of the abdominal cavity. We found the fundus of the gallbladder to be covered by omentum. There was no evidence of malignancy. No evidence of calcifications or significant issues with adhesions, or other abnormalities. The liver appeared to be healthy. With this information, we went a head and placed the other trocars under direct visualization, after injecting their sites with 0.25% Marcaine with epinephrine , placing a 5-mm trocar in the umbilical midline area, a 5-mm trocar in the right anterior axillary line, and a 12-mm trocar in the midline subxiphoid region. With our instruments in place, we had excellent visualization and access to the right-upper quadrant. We then gently teased the omentum off of the gallbladder wall. The fundus of the gallbladder had an area of necrosis and there appears to be minor perforation at this area. The rest of the gallbladder wall appeared to be edematous and erythematous. We drained the gallbladder using a laparoscopic needle and then were able to grasp the fundus of the gallbladder and pointed up towards the right-upper quadrant. We attempted to do dissection in the area of triangle of Calot low, but there was significant amount of dense scar tissue in this area. To maximize the degree of safety of the operation, I decided to take the gallbladder top-down which we accomplished using cautery. There was more than usual blood loss due to the amount of inflammation in this region. Once we had completed the dissection of the gallbladder from the gallbladder bed , we were able to get enough around the area of the cystic duct and the cystic artery to open space for transection using a firing of the vascular (white) load of the 45 mm Endo JAMIN stapler. This went without difficulty and there was contract engineer rows of cora without any evidence of hemorrhage or leak. We used the stapler because of a significant amount of scarring in this region and in my assessment, we would run the risk of damaging the underlying important andrzej hepatis structures. We then delivered the gallbladder out inside of an EndoCatch bag through the 12-mm trocar site with enlarging the fascia but without contaminating the wound. The gallbladder was sent to Pathology for evaluation. Returning to the abdominal cavity, we ensured that there was adequate hemostasis and bile-stasis prior to removal of all of or equipment, including the pneumoperitoneum, and then reapproximating the 12-mm trocar site with 4 [id number] 0 Vicryl sutures, followed by washing the wounds with copious amounts of normal saline, and then reapproximating the skin using interrupted 4- 0 Monocryl sutures. Light dressing was then applied. At the end of the operation, both the sponge count and needle count were reportedly correct x2. The patient tolerated the procedure without any reported complications. ESTIMATED BLOOD LOSS: 50 mL BLOOD OR BLOOD PRODUCT TRANSFUSIONS: None to my knowledge. SPECIMENS: 1. Gallbladder COMPLICATIONS: None. DISPOSITION: Recovery area. Disclaimer: Inadvertent spelling and grammatical errors are likely due to EHR/ dictation software use and do not reflect on the quality of delivered patient care. IRAM LAIRD M.D. Nov 18, 2016 21:27
[2016-11-18] MEDS ORDERED: DOCUSATE SODIUM 100 MG CAP PO PRN (21:30)
[2016-11-18] MEDS ORDERED: BISACODYL 10 MG SUPP PR PRN (21:30)
[2016-11-18] MEDS ORDERED: NA PHOSPHATE/BIPHOS 133 ML ENEMA PR PRN (21:30)
[2016-11-18] MEDS ORDERED: HYDROmorphONE 1 MG/ML SYG IV PRN ×2 (21:30)
[2016-11-18] MEDS: FAMOTIDINE 20 MG INJ IV SCH (22:29)
[2016-11-19] MEDS: AMPICILLIN/SULB 3 GM/NS (PMX) 100 ML IVPB SCH ×4 (00:03→18:00)
[2016-11-19 02:52] VITALS: BP 114/74; RESP 18
[2016-11-19 06:26] LABS: ABNORMAL IP MESSAGE 1; BASOPHILS % 0.1 % (0.0-2.0); HEMATOCRIT 37.5 % (42.0-52.0); HEMOGLOBIN 12.5 g/dl (14.0-18.0); LYMPHOCYTES # 1.6 10^3/ul (0.8-2.9); LYMPHOCYTES % 8.8 % (15.0-51.0); MEAN CORPUSCULAR HEMOGLOBIN 27.7 pg (29.0-33.0); MEAN CORPUSCULAR HGB CONC 33.3 g/dl (32.0-37.0); MEAN PLATELET VOLUME 10.9 fl (7.4-10.4); MONOCYTE # 1.7 10^3/ul (0.3-0.9); MONOCYTES % 9.3 % (0.0-11.0); NEUTROPHILS % 81.4 % (39.0-77.0); PLATELET COUNT 318 10^3/UL (140-415); POSITIVE DIFF @See below; RED BLOOD COUNT 4.52 10^6/ul (4.70-6.10); RED CELL DISTRIBUTION WIDTH 12.3 % (11.5-14.5); WHITE BLOOD COUNT 18.4 10^3/ul (4.8-10.8)
[2016-11-19 07:27] LABS: ALBUMIN 3.4 g/dl (3.3-4.9); ALBUMIN/GLOBULIN RATIO 1.21; BILIRUBIN,INDIRECT 0.8 mg/dl (0-1.1); BILIRUBIN,TOTAL 0.8 mg/dl (0.2-1.3); CALCIUM 8.2 mg/dl (8.4-10.2); CREATININE 0.79 mg/dl (0.61-1.24); POTASSIUM 4.2 mmol/L (3.5-5.1); TOTAL PROTEIN 6.2 g/dl (6.1-8.1)
[2016-11-19 07:34] LABS: PHOSPHORUS 2.7 mg/dl (2.5-4.9)
[2016-11-19] MEDS: D5W-0.45 NACL + KCL 20 MEQ 1,000 ML IV SCH ×2 (07:54→10:44)
[2016-11-19 08:04] VITALS: BP 123/71; RESP 16
[2016-11-19] MEDS ORDERED: ENOXAPARIN 40 MG/0.4 ML SYG SC SCH (09:00)
[2016-11-19] MEDS: FAMOTIDINE 20 MG INJ IV SCH (10:00)
--- NOTE | 2016-11-19 12:43 | PDOCDIS ---
Discharge Instructions CONDITION Patient Condition: Stable HOME CARE INSTRUCTIONS: Diet Instructions: Regular FOLLOW UP/APPOINTMENTS Follow-up Plan 1. Follow-up with Dr. Wheeler in 1 week [address] [place] [address] Office Office Fax If No answer for above #, then call [phone] during the day only 2.Follow up with primary care physician in 1 week If you don't have one please let someone know, we can give you resources that may help you pick one. You may also call your insurance company to assign one to you. Review your medication list with your nurse before leaving and if you need new prescriptions please let your nurse know. I may have made changes to your home medications or given you new prescriptions, please let your primary doctor know as well. Stay compliant with your medications and report any side effects to your PCP or pharmacist. Return to the ER if you have any concerns and cannot reach your doctors or call your insurance company, they usually have a nurse that can help you. OTHER ORDERS: Other Orders: Post operative Instructions *Do not lift anything more than 25 pounds for 6 to 8 weeks *Do not swim or take hot tub bath for 2weeks *Remove dressing and May shower-Use mild soap around site and pat dry *If you notice any oozing, bleeding or other drainage or having fever or chills from site please contact Surgeon's office-If unable to get office, you may go to nearest emergency room. PAULO ANGELA NP Nov 19, 2016 12:43
[2016-11-19] MEDS ORDERED: HYDR-3498 PO (12:46)
[2016-11-19] MEDS ORDERED: CEPH-443 PO (12:46)
--- NOTE | 2016-11-19 13:39 | DS ---
Date/Time of Note Date/Time of Note DATE: 11/19/16 TIME: 13:33 Discharge Summary Admission/Discharge Info Admit Date/Time Nov 18, 2016 at 11:24 Discharge Date/Time Discharge Diagnosis Cholecystitis with perforation and gangrene. Status post laparoscopic cholecystectomy Leukocytosis secondary to cholecystitis. Patient Condition: Stable Consults ,Surgery Procedures 11/18/2016. Ultrasound abdomen.Cholelithiasis with minimal gallbladder wall thickening 11/18/2006. Laparoscopic cholecystectomy. Hospital Course This is a 46-year-old male with no significant past medical history, who presented to the emergency room with complaints of abdominal pain without nausea or vomiting. Patient denies any fever, chills, diarrhea, constipation, or any bleeding episodes. Patient was noted to have WBC 15,400 with normal LFTs. Gallbladder ultrasound showed cholecystitis. Surgery consult was called from the emergency room. Patient was treated with IV antibiotics and was admitted. Patient was kept n.p.o. and continued on IV fluids and IV broad-spectrum antibiotics. Patient had subsequently undergone laparoscopic cholecystectomy on 11/18/2016. He was found to have acute cholecystitis with perforation and gangrene. Patient tolerated procedure well. Postoperatively, he was started on a clear diet and was advanced to regular diet. His pain was minimal. He was able to tolerate activities. At this time, there is no further inpatient workup indicated and patient is surgically stable for discharge. Patient was recommended to continue antibiotics upon discharge due to perforation and gangrene found in the postoperative diagnosis. During the course of hospitalization, patient was noted to have total cholesterol 223 with LDL 168. At this time, patient did not want to start statin therapy and wanted to start with therapeutic lifestyle changes and repeat lipid panel in 1 month. Disposition: Patient will be discharged home today. He was instructed to follow -up with his surgeon as outpatient. He was also instructed to see primary care provider and to have his lipid panel redrawn in 4 weeks. Patient verbalized instruction. On day of discharge, patient labs, vital signs within acceptable range. Patient also feels back to his baseline. Condition at time of discharge is stable. Approximately 60 minutes was spent in coordinating the discharge on this patient. Case discussed with . Home Meds Active Scripts Cephalexin* (Keflex*) 500 Mg Capsule, 500 MG PO Q6, #28 CAP Prov:PAULO ANG[facility]A [facility] 11/19/16 Ondansetron (Ondansetron Odt) 4 Mg Tab.rapdis, 4 MG PO Q6H Y for NAUSEA AND/OR VOMITING, #10 TAB Prov:EWA NEVAREZ NP 11/17/16 Tramadol HCl (Tramadol HCl) 50 Mg Tablet, 50 MG PO Q4 Y for PAIN, #20 TAB Prov:ROQEUEWA X. KAJAL 11/17/16 Discontinued Scripts Ibuprofen* (Motrin*) 800 Mg Tab, 800 MG PO Q6H Y for PAIN AND OR ELEVATED TEMP, #30 TAB Prov:EWA NEVAREZ NP 11/17/16 Follow-up Plan FOLLOW UP/APPOINTMENTS Follow-up Plan 1. Follow-up with Dr. Wheeler in 1 week [address] [place] [id number] Office Office Fax If No answer for above #, then call [phone] during the day only 2.Follow up with primary care physician in 1 week If you don't have one please let someone know, we can give you resources that may help you pick one. You may also call your insurance company to assign one to you. Review your medication list with your nurse before leaving and if you need new prescriptions please let your nurse know. I may have made changes to your home medications or given you new prescriptions, please let your primary doctor know as well. Stay compliant with your medications and report any side effects to your PCP or pharmacist. Return to the ER if you have any concerns and cannot reach your doctors or call your insurance company, they usually have a nurse that can help you. OTHER ORDERS: Other Orders: Post operative Instructions *Do not lift anything more than 25 pounds for 6 to 8 weeks *Do not swim or take hot tub bath for 2weeks *Remove dressing and May shower-Use mild soap around site and pat dry *If you notice any oozing, bleeding or other drainage or having fever or chills from site please contact Surgeon's office-If unable to get office, you may go to nearest emergency room. Primary Care Provider Not On Staff Doctor Pending Labs Laboratory Tests Test 11/19/16 05:19 11/19/16 05:20 White Blood Count 18.410^3/ul (4.8-10.8) Red Blood Count 4.5210^6/ul (4.70-6.10) Hemoglobin 12.5g/dl (14.0-18.0) Hematocrit 37.5% (42.0-52.0) Mean Corpuscular Volume 83.0fl (82.0-101.0) Mean Corpuscular Hemoglobin 27.7pg (29.0-33.0) Mean Corpuscular Hemoglobin Concent 33.3g/dl (32.0-37.0) Red Cell Distribution Width 12.3% (11.5-14.5) Platelet Count 33424^3/UL (140-415) Mean Platelet Volume 10.9fl (7.4-10.4) Neutrophils % 81.4% (39.0-77.0) Lymphocytes % 8.8% (15.0-51.0) Monocytes % 9.3% (0.0-11.0) Eosinophils % 0.0% (0.0-7.0) Basophils % 0.1% (0.0-2.0) Nucleated Red Blood Cells % 0.0/100WBC (0.0-0.0) Neutrophils # 15.010^3/ul (1.6-7.5) Lymphocytes # 1.610^3/ul (0.8-2.9) Monocytes # 1.710^3/ul (0.3-0.9) Eosinophils # 0.010^3/ul (0.0-0.5) Basophils # 0.010^3/ul (0.0-0.1) Nucleated Red Blood Cells # 0.010^3/ul (0.0-0.0) Sodium Level 140mmol/L (135-144) Potassium Level 4.2mmol/L (3.5-5.1) Chloride Level 104mmol/L (97-110) Carbon Dioxide Level 24mmol/L (21-31) Anion Gap 16 (8-16) Blood Urea Nitrogen 15mg/dl (7-20) Creatinine 0.79mg/dl (0.61-1.24) Glucose Level 131mg/dl (70-220) Calcium Level 8.2mg/dl (8.4-10.2) Phosphorus Level 2.7mg/dl (2.5-4.9) Magnesium Level 2.0mg/dl (1.7-2.5) Total Bilirubin 0.8mg/dl (0.2-1.3) Direct Bilirubin 0.00mg/dl (0.00-0.20) Indirect Bilirubin 0.8mg/dl (0-1.1) Aspartate Amino Transf (AST/SGOT) 54IU/L (15-46) Alanine Aminotransferase (ALT/SGPT) 42IU/L (13-69) Alkaline Phosphatase 69IU/L (42-121) Total Protein 6.2g/dl (6.1-8.1) Albumin 3.4g/dl (3.3-4.9) Globulin 2.80g/dl (1.3-3.2) Albumin/Globulin Ratio 1.21 PAULO AN[facility]A [facility] Nov 19, 2016 13:39
--- NOTE | 2016-11-19 14:11 | PN ---
Date/Time of Note Date/Time of Note DATE: 11/19/16 TIME: 14:11 Assessment/Plan Lines/Catheters IV Catheter Type (from Nrs): Peripheral IV Assessment/Plan Assessment/Plan [facility] Progress Note Date of Service: 11/19/2016 Place of service: [facility] 6 floor Today's Assessment & Plan: Overall stable and doing well. No evidence for major postoperative complications or surgical site infections. No indication for acute surgical intervention. Since the patient is doing so well, he might be able to discharge home after dinner this evening. This would only be if there are no other new issues. I spoke with him and answered all his questions. With above assessment, I've recommended the following for today: 1. Continue current cares 2. Increase incentive spirometry 3. Increase activity 4. Regular diet 5. May consider discharge home if doing well after dinner 6. Discharge instructions: "Please call [phone] if any of fever, nausea, vomiting, discharge from wound, wound redness, increase or sudden pain, blood in stool or vomit, or any other unusual signs or symptoms. Also, please call the same number in a few days to schedule an appointment for your follow up visit. Patient may remove dressings tomorrow. Showers OK starting tomorrow. No swimming , hot tub or bath for 2 weeks. No lifting more than 25 lbs for 8 weeks." Thank you again for your great care of this very pleasant patient and wonderful family. If there are any questions, please feel free to call me at [phone]. Nature of presenting problem: High severity Please note that, given the multiple number of diagnoses or management options, the moderate amount and/or complexity of data needed to be reviewed, and I risk of complications and/or morbidity or mortality, this qualifies as moderate complexity type of decision-making. Disclaimer: Inadvertent spelling and grammatical errors are likely due to EHR/ dictation software use and do not reflect on the quality of delivered patient care. Also, please note that the electronic time recorded on this node does not necessarily reflect the actual time of the visit. Updated clinical summary: Patient is a very-pleasant and otherwise seemingly healthy 46-year-old gentleman with only known comorbidity of BMI 26.5, presenting with signs and symptoms consistent with possible early acute cholecystitis. Comorbidities: 1. Acute cholecystitis with perforation and gangrene; laparoscopic cholecystectomy [facility] 11/18/2016 2. BMI 26.5 Subjective: No major events or complaints; no major abd pain and under control with medications; no n/v/d; no sob or cp; + flatus; - BM; + activity Objective: Vitals: See below I's & O's: See below Exam: GENERAL: On exam, the patient was lying in bed and appeared to be comfortable and in no acute distress. ABDOMEN: Soft, nontender and nondistended. Incision dressings are clean, dry and intact without any evidence of obvious underlying erythema, edema, discharge , or hernia. There are no peritoneal signs or guarding. SKIN: Skin appears to be pink and feels warm to touch. NEUROLOGIC: Patient is awake, alert, and follows commands appropriately. Labs: See below Exam/Review of Systems Vital Signs Vitals Vital Signs Date Time Temp Pulse Resp B/P Pulse Ox O2 Delivery O2 Flow Rate FiO2 11/19/16 08:04 98.5 80 16 123/71 97 11/18/16 22:50 Room Air Intake and Output 11/18/16 11/18/16 11/19/16 15:00 23:00 07:00 Intake Total 2500 ml 1010 ml Output Total 250 ml 600 ml Balance 2250 ml 410 ml Results Result Diagram: 11/19/16 0519 11/19/16 0520 IRAM LAIRD M.D. Nov 19, 2016 14:11
[2016-11-19 14:25] VITALS: BP 137/83; RESP 18
[2016-11-19] MEDS ORDERED: FAMOTIDINE 20 MG TAB PO SCH (21:00)
== END 2016-11-19 19:55 | disposition home or self-care (01) | DRG 419 ==
LOC: FTE 07:09 → MS2 11:24
PROVIDERS: ADMIT Internal Medicine; ATTEND Internal Medicine
PROC: 0FT44ZZ Resection of Gallbladder, Percutaneous Endoscopic Approach (ICD-10-PCS; principal; 2016-11-18 16:00)
DX: K80.12 Calculus of gallbladder with acute and chronic cholecystitis without obstruction (principal)
CPT/HCPCS: 36415; 76705; 80053; 80061; 81001; 83036; 83690; 83735; 84100; 84439; 84443; 85025; 88304; 96374; 96375; 96376; J0295; J0360; J1100; J1650; J1885; J2250; J2270; J2370; J2405; J2710; J2765; J2795; J3010; J3480; J7999